=== PATIENT | male | born 1975 | race Caucasian/White ===

== ENCOUNTER 2018-08-09 09:19 | Emergency (ER) | payer BC ==
--- OUTSIDE RECORDS SUMMARY | 2018-08-09 09:26 | XMS REPORT ---
:1975 External Reference #:[id number] Author Organization [employer] Address [address] [place] [id number] Phone [phone] Care Team Providers Name Role Phone Lázaro Will MD Primary Care Physician Unavailable Payers Type Date Identification Numbers Payment Provider Subscriber Commercial Policy Number: [id number] [employer] Justice Fairbanks PayID: [id number] [address] [address] [place] [address] Problems Date Description Provider Status Onset: 12/18/2016 Localized, primary osteoarthritis Nery Perez MD Active Onset: 07/18/2018 Current tear of medial cartilage AND/OR Nery Perez MD Active meniscus of knee Onset: 07/18/2018 Knee joint effusion Nery Perez MD Active Family History Date Family Member(s) Problem(s) Comments General No Current Problems Social History Type Date Description Comments 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 Vital Signs Date Vital Result Comment 07/18/2018 Height 71 inches 5'11" Weight 220.00 lb Heart Rate 52 /min BP Systolic 124 mmHg BP Diastolic 78 mmHg Pain Level 2 BMI (Body Mass Index) 30.7 kg/m2 02/27/2018 Height 71 inches 5'11" Weight 215.00 lb BP Systolic 122 mmHg BP Diastolic 80 mmHg Respiratory Rate 18 /min Pain Level 0 BMI (Body Mass Index) 30.0 kg/m2 01/28/2018 Height 71 inches 5'11" Weight 215.00 lb BP Systolic 132 mmHg BP Diastolic 82 mmHg Respiratory Rate 18 /min Pain Level 1 BMI (Body Mass Index) 30.0 kg/m2 03/25/2017 Height 71 inches 5'11" Weight 215.00 lb Heart Rate 43 /min BP Systolic 128 mmHg BP Diastolic 81 mmHg Body Temperature 96.8 F BMI (Body Mass Index) 30.0 kg/m2 12/18/2016 Height 71 inches 5'11" Weight 215.00 lb Heart Rate 72 /min BP Systolic Sitting 134 mmHg BP Diastolic Sitting 76 mmHg Respiratory Rate 16 /min Pain Level 0 BMI (Body Mass Index) 30.0 kg/m2 03/01/2016 Height 71 inches 5'11" Weight 215.00 lb Heart Rate 44 /min BP Systolic 134 mmHg BP Diastolic 88 mmHg BMI (Body Mass Index) 30.0 kg/m2 Results Description No Information Procedures Date CPT Code Description Status 01/28/201835502 Inject/Drain Joint/Bursa Major W/O US Completed 03/25/2017 26368 Inject/Drain Joint/Bursa Major W/O US Completed Encounters Type Date Location Provider CPT E/M Dx Office Visit 02/27/2018 10:30a [facility] [place] [address] M17.11 [facility] Office Visit 12/18/2016 1:15p [facility] [place] [address] M17.11 [facility] Office Visit 03/01/2016 8:30[place] [facility] [place] [address] M17.11 C[facility] Plan of Care 07/18/2018 - Nery Perez, MDM17.11 Unilateral primary osteoarthritis, right kneeM25.461 Effusion, right kneeS83.241A Oth tear of medial meniscus, current injury, r knee, initFollow up:Follow up: after MRI
--- OUTSIDE RECORDS SUMMARY | 2018-08-09 09:26 | XMS REPORT | Continuity of Care Document ---
:1975 External Reference #:[id number] Author Name Dorita Irene Care Team Providers Name Role Phone Lázaro Will MD Primary Care Physician Unavailable Payers Type Date Identification Numbers Payment Provider Subscriber Policy Number: [id number] [employer] Justice Fairbanks PayID: [id number] [address] [address] [place] [address] Advance Directives Description No Information Available Problems Date Description Provider Status Onset: 12/18/2016 Localized, primary osteoarthritis Nery Perez MD Active Onset: 07/18/2018 Current tear of medial cartilage AND/OR Nery Perez MD Active meniscus of knee Onset: 07/18/2018 Knee joint effusion Nery Perez MD Active Family History Date Family Member(s) Problem(s) Comments General No Current Problems Social History Type Date Description Comments Sex Unknown 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 Immunizations Description No Information Available Vital Signs Date Vital Result Comment 08/05/2018 12:00pm Height 71 inches 5'11" Weight 220.00 lb BP Systolic 140 mmHg BP Diastolic 60 mmHg Respiratory Rate 18 /min Pain Level 0 BMI (Body Mass Index) 30.7 kg/m2 07/18/2018 8:24am Height 71 inches 5'11" Weight 220.00 lb Heart Rate 52 /min BP Systolic 124 mmHg BP Diastolic 78 mmHg Pain Level 2 BMI (Body Mass Index) 30.7 kg/m2 02/27/2018 10:41am Height 71 inches 5'11" Weight 215.00 lb BP Systolic 122 mmHg BP Diastolic 80 mmHg Respiratory Rate 18 /min Pain Level 0 BMI (Body Mass Index) 30.0 kg/m2 01/28/2018 3:48pm Height 71 inches 5'11" Weight 215.00 lb BP Systolic 132 mmHg BP Diastolic 82 mmHg Respiratory Rate 18 /min Pain Level 1 BMI (Body Mass Index) 30.0 kg/m2 03/25/2017 11:02am Height 71 inches 5'11" Weight 215.00 lb Heart Rate 43 /min BP Systolic 128 mmHg BP Diastolic 81 mmHg Body Temperature 96.8 F BMI (Body Mass Index) 30.0 kg/m2 12/18/2016 1:20pm Height 71 inches 5'11" Weight 215.00 lb Heart Rate 72 /min BP Systolic Sitting 134 mmHg BP Diastolic Sitting 76 mmHg Respiratory Rate 16 /min Pain Level 0 BMI (Body Mass Index) 30.0 kg/m2 03/01/2016 8:46am Height 71 inches 5'11" Weight 215.00 lb Heart Rate 44 /min BP Systolic 134 mmHg BP Diastolic 88 mmHg BMI (Body Mass Index) 30.0 kg/m2 Results Description No Information Available Procedures Date Code Description Status 01/28/201882266 Inject/Drain Joint/Bursa Major W/O US Completed 03/25/2017 66034 Inject/Drain Joint/Bursa Major W/O US Completed Encounters Type Date Location Provider Dx Diagnosis Office Visit 07/18/2018 Kenny Perez MD M17.11 Unilateral primary 8:30a [facility] C.M.ANaomi osteoarthritis, right knee M25.461 Effusion, right knee S83.241A Oth tear of medial meniscus, current injury, r knee, init M25.561 Pain in right knee Office Visit 02/27/2018 Kenny Perez, M17.11 Unilateral primary 10:30a Services Of osteoarthritis, right C.M.A. knee Office Visit 12/18/2016 Kenny Perez, M17.11 Unilateral primary 1:15p Services Of MD marie, right C.M.A. knee Office Visit 03/01/2016 Orthopedic Nery Perez, M17.11 Unilateral primary 8:30a Services Of osteoarthritis, right Paula knee Plan of Treatment 08/05/2018 - Nery Perez, MDM17.11 Unilateral primary osteoarthritis, right kneeS83.241A Other tear of medial meniscus, current injury, right knee, iFollow up:Follow up: will call
[2018-08-09 09:32] VITALS: BP 157/94
--- NOTE | 2018-08-09 09:56 | UC ---
Throat Pain/Nasal Anoop HPI - HPI Summary HPI Summary: 43-year-old male comes to clinic today with a chief complaint of 11 days of rhinorrhea and sinusitis symptoms. 11 days ago he felt very sick for about 3 days. Then it gradually improved. 2 days ago he started feeling much sicker and overnight he had fevers and body aches. Rhinorrhea is yellow. - History of Current Complaint Chief Complaint: UCRespiratory Stated Complaint: SINUS ISSUE Time Seen by Provider: 08/09/18 09:33 Pain Intensity: 1 - Allergies/Home Medications Allergies/Adverse Reactions: Allergies Allergy/AdvReac Type Severity Reaction Status Date / Time No Known Allergies Allergy Verified 08/09/18 09:32 Home Medications: Home Medications D-Methorphan/PE/Acetaminophen [Gnp Day Time Cold/Flu Rel] 1 liq PO DAILY PRN [History Confirmed 08/09/18] Fluticasone NASAL SPRAY 50MCG* [Flonase NASAL SPRAY 50MCG*] 2 spray BOTH NARES DAILY 08/09/18 [History Confirmed 08/09/18] Ibuprofen TAB* [Advil TAB*] 200 mg PO Q6H PRN 08/09/18 [History Confirmed ] guaiFENesin/CODIEN 100MG-10MG* [Robitussin AC 100Mg-10Mg*] 5 ml PO Q4H PRN 08/09 [History Confirmed 08/09/18] PMH/Surg Hx/FS Hx/Imm Hx Previously Healthy: Yes - Surgical History Surgical History: Yes Surgery Procedure, Year, and Place: orthro ankle 1994, r elbow 1988,lasic on eyes. - Family History Known Family History: Positive: Non-Contributory - Social History Alcohol Use: None Substance Use Type: None Smoking Status (MU): Former Smoker When Did the Patient Quit Smoking/Using Tobacco: 2010 Review of Systems All Other Systems Reviewed And Are Negative: Yes Constitutional: Positive: Fever, Chills Skin: Positive: Negative Eyes: Positive: Negative ENT: Positive: Sore Throat, Nasal Discharge, Sinus Congestion, Sinus Pain/ Tenderness Respiratory: Positive: Cough Cardiovascular: Positive: Negative Gastrointestinal: Positive: Negative Motor: Positive: Negative Neurovascular: Positive: Negative Musculoskeletal: Positive: Negative Neurological: Positive: Negative Psychological: Positive: Negative Is Patient Immunocompromised?: No Physical Exam Triage Information Reviewed: Yes Appearance: No Pain Distress, Well-Nourished, Ill-Appearing - mild Vital Signs: Initial Vital Signs Temp 98.5 F 08/09/18 09:27 Pulse 49 08/09/18 09:27 Resp 14 08/09/18 09:27 BP 157/94 08/09/18 09:27 Pulse Ox 96 08/09/18 09:27 Vital Signs Reviewed: Yes Eye Exam: Normal Eyes: Positive: Conjunctiva Clear ENT: Positive: Pharyngeal erythema, Nasal congestion, Nasal drainage, TMs normal Neck exam: Normal Neck: Positive: Supple Respiratory: Positive: Lungs clear, Normal breath sounds, No respiratory distress Cardiovascular: Positive: RRR Musculoskeletal Exam: Normal Musculoskeletal: Positive: Strength Intact, ROM Intact Neurological Exam: Normal Neurological: Positive: Alert, Muscle Tone Normal Psychological Exam: Normal Psychological: Positive: Normal Response To Family, Age Appropriate Behavior Skin Exam: Normal Throat Pain/Nasal Course/Dx - Course Course Of Treatment: Influenza was negative. We will treat for sinusitis and continue symptomatic treatment also. - Differential Dx/Diagnosis Provider Diagnoses: SINUSITIS Discharge - Sign-Out/Discharge Documenting (check all that apply): Patient Departure All imaging exams completed and their final reports reviewed: No Studies - Discharge Plan Condition: Stable Disposition: HOME Prescriptions: Amoxicillin/Clavulanate TAB* [Augmentin TAB 875*] 875 mg PO BID #20 tab Patient Education Materials: Sinusitis (ED) Referrals: Lázaro Will MD [Primary Care Provider] - Additional Instructions: FOLLOW UP WITH YOUR DOCTOR IF NOT COMPLETELY IMPROVED. GET RECHECKED FOR ANY WORSENING OF YOUR CONDITION OR QUESTIONS OR CONCERNS. - Billing Disposition and Condition Condition: STABLE Disposition: Home
== END 2018-08-09 10:48 | disposition home or self-care (01) ==
LOC: UCEAST 09:19
DX: J32.9 Chronic sinusitis, unspecified (principal); Z87.891 Personal history of nicotine dependence
CPT/HCPCS: 99212; G0463

== ENCOUNTER 2018-08-25 10:09 | Day surgery (SDC) | payer BC ==
--- NOTE | 2018-08-15 20:10 | HP ---
AMENDED REPORT NOW INCLUDES DESIGNATED COSIGNER PREOPERATIVE HISTORY AND PHYSICAL: DATE OF ADMISSION/SURGERY: 08/25/18 DATE OF OFFICE VISIT: 08/15/18 ATTENDING SURGEON: Nery Perez MD * (DICTATED BY ALEXANDER TURPIN) PROCEDURE: Right knee arthroscopy with partial meniscectomy. CHIEF COMPLAINT: Right knee pain. HISTORY OF PRESENT ILLNESS: Justice is a 43-year-old male, who presents to the clinic for right knee pain due to meniscus tear. He has failed conservative measures and therefore agreed to undergo a right knee arthroscopy with partial meniscectomy with Dr. Perez on 08/25/18. PAST MEDICAL HISTORY: Denies current problems. PAST SURGICAL HISTORY: Peroneal tendon repair in 1994, right elbow surgery in 1989 with an ORIF and then a right elbow removal of hardware in 1991, LASIK eye surgery. The patient denies prior complications with anesthesia. MEDICATIONS: No active medications. ALLERGIES: No known drug allergies. FAMILY HISTORY: Positive for dad with heart disease. SOCIAL HISTORY: He lives with his spouse. He is a former smoker, quit 10 years ago. He denies alcohol consumption. He is a stucco laborer. REVIEW OF SYSTEMS: A 14-point review of systems was reviewed with the patient. Positive for current complaint, otherwise negative. Denies fever, chills, history of shortness of breath, history of bleeding disorder, history of DVT or PE. PHYSICAL EXAMINATION VITAL SIGNS: Height 71, weight 225, pulse 56, blood pressure 130/76, respiratory rate 16, temperature 97.5, BMI 31.4. HEENT: Normocephalic, atraumatic. PERRLA. Throat: Clear. NECK: Supple. PULMONARY: Lungs are clear to auscultation bilaterally. No wheezing, rhonchi, or rales. CARDIO: Regular rate and rhythm. S1, S2. No murmurs, gallops, or rubs. No edema. ABDOMEN: Positive bowel sounds, soft, nontender. NEURO: Alert and oriented x3. MUSCULOSKELETAL: Right lower extremity: Skin intact. No warmth or erythema. Tender over the medial joint line. Positive Elena's. Stable Tish, negative posterior drawer, stable varus and valgus stress, range of motion is 0 to 140. Calf soft, nontender. +5/5 strength to ankle dorsiflexion and plantar flexion. +2 DP pulse. Sensation intact to light touch distally. DIAGNOSTIC STUDIES: MRI revealed area of full-thickness loss of the cartilage of the medial compartment as well as medial meniscus tearing and some mild arthritis of the patellofemoral joint. IMPRESSION: Right knee medial meniscus tear. PLAN: The patient is scheduled to undergo a right knee arthroscopy with partial meniscectomy with Dr. Perez on 08/25/18. He will follow up 10 to 14 days postop and Percocet will be use for postop pain management. ALEXANDER TURPIN [id number]/CPS #: [id number] MTDD
[~2018-08-25 10:09] MED LIST: Buffered Lidocaine 0.9% SYRIN* 5 ML/SYR SYRINGE INTRADERM ONE; Famotidine IV* 10 MG/ML 2 ML (20 mg) IV ONE
[2018-08-25] MEDS ORDERED: Famotidine IV* 10 MG/ML 2 ML (20 mg) ONE (10:18)
[2018-08-25] MEDS ORDERED: ceFAZolin 2 GM PREMIX in ORs 2 GM/50 ML BAG IVPB ONE (10:18)
[2018-08-25] MEDS ORDERED: Lidocaine 1% MPF wEPI 200,000* 30 ML SDV ONE (10:19)
[2018-08-25] MEDS ORDERED: ROPIVACAINE 5 MG/ML 30 ML BTL (0.5%) ONE (10:19)
[2018-08-25] MEDS ORDERED: Midazolam* 1 MG/ML 5 ML VIAL (5 MG) ONE (10:24)
[2018-08-25] MEDS ORDERED: fentaNYL* 50 MCG/ML 2 ML VIAL (100 MCG VIAL) ONE (10:24)
[2018-08-25] MEDS ORDERED: Chloroprocaine 2%* 20 ML VIAL ONE (11:17)
[2018-08-25] MEDS ORDERED: Ondansetron INJ* 2 MG/ML VIAL ONE (11:43)
[2018-08-25] MEDS ORDERED: Ketorolac INJ* 30 MG/ML 1 ML VIAL ONE (11:43)
[2018-08-25] MEDS ORDERED: HYDROmorphone INJ1* 1 MG/ML SYRINGE IV PRN (12:00)
[2018-08-25] MEDS ORDERED: DiMENhydriNATE IV* 50 MG/ML VIAL IV PUSH PRN (12:00)
[2018-08-25] MEDS ORDERED: Naloxone* 0.4 MG/ML 1 ML VIAL IV PRN (12:00)
[2018-08-25] MEDS ORDERED: oxyCODONE TAB* 5 MG TAB PO PRN (12:00)
[2018-08-25] MEDS ORDERED: Acetaminophen TAB* 325 MG PO PRN (12:00)
[2018-08-25] MEDS ORDERED: Propofol* 10 MG/ML 20 ML BTL ONE (12:17)
[2018-08-25 14:00] VITALS: BP 123/82
--- NOTE | 2018-08-26 02:55 | OP ---
DATE OF OPERATION: 08/25/18 [facility] DATE OF : 75 SURGEON: Nery Perez MD PROCESSING ASSOCIATE: None available. ANESTHESIOLOGIST: Dr. Jensen. ANESTHESIA: Spinal with local MAC. PRE-OP DIAGNOSIS: Right knee osteoarthritis with meniscal tear. 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 OPERATIVE PROCEDURE: Right knee arthroscopy with: 1. Partial medial and partial lateral meniscectomy. 2. Removal of loose bodies x3 greater than 5 mm. 3. Chondroplasty of the patella, the trochlea as well as the medial femoral condyle. INDICATIONS: Justice Fairbanks is a 43-year-old male, who has been seen by me for multiple years for his knee pain. He has failed conservative management and elected to proceed with surgical treatment. Risks and benefits were discussed at length including, but not limited to, bleeding; infection; damage to nerves, vessels, surrounding structures; wound non-healing; persistent pain; need for further surgery; scarring; stiffness; incomplete relief of symptoms; risk of anesthesia. COMPLICATIONS: None. ESTIMATED BLOOD LOSS: Minimal. TOURNIQUET TIME: Zero minutes. DESCRIPTION OF PROCEDURE: The patient was greeted in the preoperative area by the attending surgeon. Correct extremity was marked and consent was confirmed. The patient was brought back to the operating suite, where he was placed in supine position on the operating table. He then underwent spinal anesthesia after which he was placed in the supine position, a lateral post was positioned. The leg was then prepped and draped in the usual sterile fashion beginning with chlorhexidine soap, scrub, and alcohol wipe, and a final prep with ChloraPrep. After appropriate surgical pause indicating site, side, procedure, administration of antibiotics, the knee was intraarticularly injected with 1% lidocaine with epi. The anterolateral portal was made sharply with an 11-blade. Scope was then introduced into the joint, joint was examined. There was abundant synovitis anteriorly. The ACL and PCL were intact. The anterior medial portal was made in an outside-in fashion. Shaver was used to debride back significant synovitis present as well as electrocautery device to maintain hemostasis. The medial femoral condyle was examined, for the most part had grade 0 to 1 change except for an area about the weightbearing surface of the medial femoral condyle that extended about 15 mm across and about 3 cm longitudinal in length and it had grade 3 cartilage. Medial meniscus was examined and a vast majority of the body was intact, but there was fraying at the root. This was debrided back using a shaver and the knee was then placed in [id number] position. The lateral femoral condyle and lateral plateau had grade 0 to 1 changes with some fissuring as well on the tibial plateau, the lateral root had some fraying as well as the body, which was debrided back using the shaver. The knee was then placed in full extension. There was abundant synovitis present, anteriorly, medially, and laterally. This was all debrided back using beltran and electro-cautery device. This revealed a spurring of the inferior aspect of the patella. The patella had a small area of grade 2 changes. There were unstable flaps, which were debrided back, but the trochlea had small area of grade 4 changes, otherwise grade 3 changes with large chondral flaps. While the knee was being moved around, 3 large loose bodies were dislodged between the lateral compartment and the patellofemoral joint. This was removed using beltran and graspers. The medial and lateral gutters were intact with small loose debris, which was lavaged. Beltran were used to debride back the small chondral flaps. Once hemostasis was obtained, the wounds were then copiously irrigated, all loose debris was removed, the knee was sterilely lavaged, final images were obtained. The knee was copiously irrigated with sterile saline. The portals were closed with 3-0 nylon. The knee was intraarticularly injected with 0.2% ropivacaine plain. Sterile dressings were applied. A Cryo/Cuff was applied. He was awoken from anesthesia and transferred to PACU in stable condition. POSTOPERATIVE PLAN: He will be weightbearing as tolerated. He will be discharged on pain medication. DVT prophylaxis was considered, but deferred due to no previous personal or family history. I will see the patient back in 10 to 14 days. [id number]/CPS #: [id number] MICHELLE
== END 2018-08-25 14:22 | disposition home or self-care (01) ==
LOC: OREAST 10:09
PROVIDERS: ATTEND Orthopaedic Surgery
DX: S83.241D Other tear of medial meniscus, current injury, right knee, subsequent encounter (principal); M17.11 Unilateral primary osteoarthritis, right knee; Z87.891 Personal history of nicotine dependence; X58.XXXD Exposure to other specified factors, subsequent encounter
CPT/HCPCS: J0690; J1885; J2001; J2250; J2400; J2405; J2704; J2795; J3010